=== PATIENT | female | born 1935 | race Caucasian/White ===

== ENCOUNTER 2016-09-17 20:00 | Emergency (ER) | payer OTHER ==
[~2016-09-17] VITALS: Ht 154.9 cm; Wt 71.6 kg
[~2016-09-17 20:00] MED LIST: ALBUTEROL17 GM IH; ALENDRONATE SOD35 MG PO; ALENDRONATE SOD70 MG PO; AMLODIPINE BESYL5 MG PO; ATROVENT HFA12.9 GM IH; BENICAR HCT 401 EAC1 PO; BENICAR HCT1 TABLE2 PO; CALCIUM + VITA1 EACH PO; CALCIUM 600 +1 EAC1 PO; CALCIUM W/VIT1 EACH PO; CELEBREX50 MG PR; DAILY MULTIPLE1 EACH PO; FEMARA2.5 MG PO; FIORICET,ESG1 TABLET PO; FOSAMAX35 MG PO; HYDROCODON-ACE1 EAC7 PO; LO-DOSE ASPIRIN81 M1 PO; LOSARTAN POTASSIUM; LOSARTAN-HCTZ1 EAC1 PO; LOVASTATIN10 MG PO; MICRO-K10 ME2 PO; NORTRIPTYLINE H50 MG PO; NORVASC5 MG PO; OMEPRAZOLE20 MG PO; ONE-A-DAY 50 P1 EACH PO; PRILOSEC20 MG PO; PROAIR HFA8.5 GM IH; PROMETHAZINE HC25 M1 PO; PROVENTIL,200 INHALA IH; SINGULAIR10 MG PO; SYMBICORT60 INHALAT IH; TIZANIDINE HCL4 MG PO; VITAMIN D5000 INTUN NG; VITAMIN D50000 UNI1 PO
[2016-09-17] MEDS ORDERED: ASPIR 8181 M1 PO (20:21)
[2016-09-17 21:14] LABS: EOSINOPHIL (%) 2.9 % (0-5); EOSINOPHIL COUNT 0.2 K/uL (0-0.3); HEMATOCRIT 35.1 % (36.0-46.0); IMMATURE GRANULOCYTE (%) 0.1 % (0.0-0.7); IMMATURE GRANULOCYTE COUNT 0.1 K/uL; LYMPHOCYTE COUNT 1.4 K/uL (1.0-2.8); MCH 31.7 PG (29.0-34.0); MCHC 35.6 G/DL (30.0-36.0); MCV 89.1 FL (83-99); MEAN PLAT.VOLUME 9.5 uM^3 (9.5-12.4); MONOCYTE (%) 7.6 % (3-12); MONOCYTE COUNT 0.6 K/uL (0-0.8); NEUTROPHIL (%) 70.4 % (45-76); NEUTROPHIL COUNT 5.1 K/uL (1.8-6.4); PLATELET COUNT 198 K/uL (156-360); RBC DIS.WIDTH-CV 12.8 % (11.8-14.6); RBC DIS.WIDTH-SD 40.8 % (39-53); RED BLOOD COUNT 3.94 M/uL (3.80-5.20); WHITE BLOOD COUNT 7.3 K/uL (4.1-10.2)
[2016-09-17 21:22] LABS: CHLORIDE 104 mEq/L (99-109); POTASSIUM 3.3 mEq/L (3.7-5.4); SODIUM 139 mEq/L (136-147)
[2016-09-17 21:24] LABS: GLUCOSE 126 mg/dL (70-99)
[2016-09-17 21:26] LABS: ANION GAP 12 MEQ/L (2-14)
[2016-09-17 21:28] LABS: GFR ESTIMATE (CALCULATED) > 59 mL/min/
[2016-09-17 21:29] LABS: UREA NITROGEN (BUN) 18 mg/dL (9-23)
[2016-09-17 21:34] LABS: TROP-I INTERPRETATION NEGATIVE; TROPONIN-I < 0.01 ng/mL (0.0-0.30)
[2016-09-17 22:32] VITALS: BP 157/76
== END 2016-09-17 23:12 | disposition home or self-care (01) ==
LOC: EME → EDBD 20:00 → EME 20:00
PROVIDERS: Emergency Medicine
DX: R55 Syncope and collapse (principal); E87.6 Hypokalemia; I10 Essential (primary) hypertension; K21.9 Gastro-esophageal reflux disease without esophagitis; Z85.3 Personal history of malignant neoplasm of breast; Z79.82 Long term (current) use of aspirin
CPT/HCPCS: 80048; 84484; 85025; 93005; 99281; 99285; J7030